=== PATIENT | male | born 1985 | race Caucasian/White ===

== ENCOUNTER 2023-09-19 12:23 | Emergency (ER) | payer OTHER, SELFPAY ==
[2023-09-19 12:30] VITALS: BP 131/82; PULSE 65; RESP 16; TEMP 36.9; O2SAT 98
--- NOTE | 2023-09-19 12:39 | ED.EYEPROB ---
HPI - Eye Problem General Chief complaint: Eye Problems Stated complaint: fb in right eye Time Seen by Provider: 09/19/23 12:39 Source: patient, RN notes reviewed and old records reviewed Mode of arrival: ambulatory Limitations: no limitations History of Present Illness HPI Narrative: 38 year old male with complaints of foreign body sensation to his right eye since yesterday with some swelling of his right upper and lower eyelid, with eye continuously watering. states vision is a little blurry, sclera is red with no photophobia noted.. Patient reports that he got some sawdust in his right eye at work yesterday. Patient reports that he did not attempt to flush his eye admts to rubbing his right eye. Visual acuity right eye 20/30,Left eye 20/25 without corrective lens. chief complaint: eye redness, foreign body (sensation) and other (swelling right upper and lower eyelids) Onset (ago): day(s) ( 2 of symptoms) Onset description: sudden Duration: constant Location: right eye Eye Symptoms: redness and foreign body sensation Place: work Severity scale (1-10): 3 Treatments Prior to Arrival: none Related Data Home Medications Medication Instructions Recorded Confirmed buprenorphine 4 mg-naloxone 1 mg See Rx Instructions .Route .COMPLEX 09/19/23 09/19/23 sublingual film sertraline 50 mg tablet 50 mg PO DAILY 09/19/23 09/19/23 Allergies Allergy/AdvReac Type Severity Reaction Status Date / Time No Known Allergies Allergy Verified 09/19/23 12:38 Review of Systems Review of Systems: CONSTITUTIONAL: Denies fever, chills, or sweats. EYES: Report that vision a little blurry.. Reports redness,, irritation, foreign body sensation to right eye with swelling of upper and lower eyelids. no drainage from eye has increased watering. ENT: Denies rhinorrhea, congestion, sore throat, or otalgia. CARDIOVASCULAR: Denies chest pain, palpitations, or edema. RESPIRATORY: Denies cough or dyspnea. SKIN: Denies rash or itching. 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 There is no relevant family history pertinent to the presenting complaint Exam Narrative: GENERAL: Well-appearing, well-nourished, and in no acute distress. HEAD: Normocephalic, atraumatic. EYES: PERRLA and EOMI. Upper and lower eyelids swollen excessive watering from right eye no mucous drainage has foreign body feeling, sclera red, conjunctiva normal, vision stated a little blurry, no photophobia. see procedure note.visual acuity right eye 2/30 and left 20/25 without correction. ENT: Nares clear, no rhinorrhea or epistaxis. Mucous membranes moist. NECK: Supple. no lymphadenopathy CHEST: Clear to auscultation. No respiratory distress.SAO2 98% on room air HEART: Regular rate and rhythm. No murmur heard. Normal peripheral pulses. SKIN: Warm, dry, no rash. NEURO: No focal deficits. Alert and oriented x3. Course Course Emergency Course: Patient is aware of diagnosis, understands and agrees to treatment plan. Anticipatory guidance given. Patient agrees to follow-up as directed and is aware of reasons to seek care at the emergency department. Portions of this record may have been created with voice r
[2023-09-19] MEDS: DACRIOSE EYE IRRIGATION 118 ML BOTTLE 25 ML RIGHT EYE (12:54)
[2023-09-19] MEDS: FLUORESCEIN SOD 1 MG/STRIP EACH EYE (12:54)
[2023-09-19] MEDS: TETRACAINE HCL 0.5% OPHTH SOLN 4 ML BTL 1 DROP EACH EYE (12:54)
== END 2023-09-19 13:20 | disposition home or self-care (01) ==
PROVIDERS: Emergency Provider Registered Nurse; PCP Nurse Practitioner
DX: T15.81XA Foreign body in other and multiple parts of external eye, right eye, initial encounter (principal); W44.8XXA Other foreign body entering into or through a natural orifice, initial encounter; Y99.0 Civilian activity done for income or pay; F17.210 Nicotine dependence, cigarettes, uncomplicated; F32.A Depression, unspecified
CPT/HCPCS: 65205; 99213; A9270; G0463

== ENCOUNTER 2024-10-26 13:54 | Emergency (ER) | payer OTHER, SELFPAY ==
--- OUTSIDE RECORDS SUMMARY | 2024-10-26 14:01 | XMS_ITS | Clinical Summary ---
Author Organization [facility] Address [address] [place] [address] Care Team Providers Care Lens Examiner Name Role Phone Polo Goff NP Primary Care Provider [phone]- [phone] Allergies Active Allergy Reactions Criticality Noted Date Comments Ketamine Unknown 12/19/2021 Meperidine Hallucinations,Unknown Medium 10/01/2021 Medications naloxone (NARCAN) 4 mg/actuation spray,non-aeroso lIndications:Opi ate-Induced Respiratory Depression Administer 1 spray into affected nostril(s) as needed for opioid reversal Call 911. Administer a single spray in one nostril. Repeat every 3 minutes as needed if no or minimal response. 2 each 1 Active buprenorphine-na loxone (SUBOXONE) 8-[address] 1 Film under the tongue daily 1 Active sertraline (ZOLOFT) 50 mg tablet 2 Active metoclopramide (REGLAN) 10 mg tablet Take 1 tablet up to twice daily as needed for nausea and vomiting. 60 tablet [address] (PROTONIX) 20 mg EC tablet Take 1 tablet (20 mg total) by mouth daily 90 tablet 1 2 Active buprenorphine-na loxone (SUBOXONE) 4-[address] 1 Film under the tongue daily 3 Film 5 Active Active Problems Problem Noted Date Diagnosed Date Elevated glucose 01/17/2022 Gastroparesis 01/17/2022 Chronic nausea 12/19/2021 Gastroesophageal reflux disease 12/19/2021 Coffee ground emesis 12/19/2021 Epigastric pain 12/19/2021 S/P cholecystectomy 12/19/2021 Abdominal pain, epigastric 12/13/2020 Opioid withdrawal 10/18/2020 Encounters Date Type Department Care Team Description 10/18/2024 [facility] Enrollment [facility] Warm Hand Off Program [address] [place], [place] [phone] Razia Salgado 10/17/2024 8:44 AM CDT - 10/17/2024 10:21 AM CDT Emergency [facility] Emergency Department [address] [place] [address] Medication refill (Primary Dx) Discharge Disposition: Discharge to home or self care from Last 3 Months Immunizations Immunization Administration Dates Next Due Tdap 10/03/2019 Surgical History Surgery Date Site/Laterality Comments CHOLECYSTECTOMY Medical History Medical History Date Comments Depression Social History Tobacco Use Types Packs/Day Years Used Date Smoking Tobacco: Every Day Cigarettes Smokeless Tobacco: Never Tobacco Cessation:Ready to Q uit: Not Asked; Counseling Given: Not Answered Alcohol Use Standard Drinks/Week Comments Not Currently 0 (1 standard drink = 0.6 oz pur e alcohol) AUDIT-C Answer Date Recorded Frequency of Alcohol Consumption Not on file 01/17/2022 Q2: How many drinks containi ng alcohol do you have on a typical day when you are drinking? Patient does not drink Frequency of Binge Drinking Not on file 12/30 Personal Safety Answer Date Recorded Have you ever been in or are you currently in a harmful physical or emotional relationship or is someone making you feel afraid or unsafe? 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 Gender Identity Not on file Sexual Orientation Not on file Obstetrics History Last Filed Vital Signs Vital Sign Reading Time Taken Comments Blood Pressure 132/70 10/17/2024 8:43 AM CDT Pulse 96 10/17/2024 8:42 AM CDT Temperature 36.8 C (98.3 F) 10/17/2024 8:42 AM CDT Respiratory Rate 16 10/17/2024 8:43 AM CDT Oxygen Saturation 100% 10/17/2024 8:42 AM CDT Inhaled Oxygen Concentration - - Weight 99.8 kg (220 lb) 10/17/2024 8:42 AM CDT Height 185.4 cm (6' 1) 10/17/2024 8:42 AM CDT Body Mass Index 29.03 10/17/2024 8:42 AM CDT Plan of Treatment Health Maintenance Due Date Last Done Comments Depression Screening 1987 Hepatitis C Screening 1987 Varicella Vaccines (1 of 2 - 13+ 2-dose series) 2000 Hepatitis B Screening 2005 Regular Well Visit/Exam 18-64 2005 Pneumococcal vaccine <65 (1 of 2 - PCV) 2006 HPV Vaccines (1 - 3-dose SCDM series) 2014 Influenza Vaccine (#1) 2024 DTaP/Tdap/Td Vaccine (2 - Td or Tdap) 10/02/202907/2019 Procedures Procedure Name Priority Date/Time Associated Diagnosis Comments DRUGS OF ABUSE SCREEN, URINE WITHOUT CONFIRMATION STAT 10/17/2024 9:00 AM CDT from Last 3 Months Results * (ABNORMAL) Drugs of Abuse Screen, Urine without Confirmation (10/17/2024 9:00 AM CDT) Amphetamine, ur Not Detected CutOff 500ng/mL [facility] ([place]) Comment: Interpretive Data - Amphetamines: Samples containing greater than 500 ng/mL d-methamphetamine or other cross-reacting amphetamine compounds are reported as positive. Amphetamine immunoassays are subject to significant false positive rates due to cross-reactivity of non-amphetamine drugs. Confirmatory testing required for definitive results. Current Interpretive Data was last reviewed 2022. Barbiturates, ur Not Detected CutOff 200ng/mL [facility] ([place]) Comment: Interpretive Data - Barbiturates: Samples containing greater than 200 ng/mL secobarbital or other cross-reacting barbiturate compounds are reported as positive. False positive and false negative results are possible. Confirmatory testing required for definitive results. Current Interpretive Data was last reviewed 2022. Benzodiazepines, ur Not Detected CutOff 100ng/mL [facility] ([place]) Comment: Interpretive Data - Benzodiazepines: Samples containing greater than 100 ng/mL nordiazepam or other cross-reacting compounds are reported as positive. False positive and false negative results are possible. Confirmatory testing required for definitive results. Current Interpretive Data was last reviewed 2022. Cannabinoids, ur Screen Positive, presumptive (A) CutOff 50 ng/mL [facility] ([place]) Comment: Interpretive Data - Cannabinoids: Samples containing greater than 50 ng/mL delta-9 THC -COOH or other cross- reacting compounds are reported as positive. False positive and false negative results are possible. Confirmatory testing required for definitive results. Current Interpretive Data was last reviewed 2022. Cocaine, ur Not Detected CutOff 150ng/mL [facility] ([place]) Comment: Interpretive Data - Cocaine: Samples containing greater than 150 ng/mL benzoylecgonine or other cross- reacting compounds are reported as positive. False positive and false negative results are possible. Confirmatory testing required for definitive results. Current Interpretive Data was last reviewed 2022. Fentanyl, Ur Not Detected CutOff 5 ng/mL [facility] ([place]) Comment: Interpretive Data - Fentanyl: Samples containing greater than 5 ng/mL norfentanyl, fentanyl, or other cross-reacting fentanyl compounds are reported as positive. False positive and false negative results are possible. Confirmatory testing required for definitive results. Current Interpretive Data was last reviewed 2023. Methadone, ur Not Detected CutOff 300ng/mL [facility] ([place]) Comment: Interpretive Data - Methadone: Samples containing greater than 300 ng/mL d,l-methadone or other cross-reacting compounds are reported as positive. False positive and false negative results are possible. Confirmatory testing required for definitive results. Current Interpretive Data was last reviewed 2022. Opiates, ur Not Detected CutOff 300ng/mL [facility] ([place]) Comment: Interpretive Data - Opiates: Samples containing greater than 300 ng/mL morphine or other cross-reacting compounds are reported as positive. False positive and false negative results are possible. Confirmatory testing required for definitive results. Current Interpretive Data was last reviewed 2022. Oxycodone, ur Not Detected CutOff 100ng/mL [facility] ([place]) Comment: Interpretive Data - Oxycodone: Samples containing greater than 100 ng/mL oxycodone or other cross-reacting compounds are reported as positive. False positive and false negative results are possible. Confirmatory testing required for definitive results. Current Interpretive Data was last reviewed 2022. Phencyclidine, ur Not Detected CutOff 25 ng/mL [facility] ([place]) Comment: Interpretive Data - Phencyclidine: Samples containing greater than 25 ng/mL phencyclidine or other cross-reacting compounds are reported as positive. False positive and false negative results are possible. Confirmatory testing required for definitive results. Current Interpretive Data was last reviewed 2022. Urine Creatinine 145 mg/dL [facility] ([place]) Comment: Interpretive Data Urine Creatinine: < 10 mg/dL is extremely dilute = or > 10 but < 20 mg/dL is dilute = or > 20 mg/dL is normal Current Interpretive Data was last revised on 2017. Urine 10/17/2024 9:00 AM CDT 10/17/2024 9:03 AM CDT Narrative [facility] ([place]) - 10/17/2024 9:28 AM CDT Drug of Abuse screening is performed by immunoassay for medical purposes only. This is not to be used for Pain Management purposes. [facility] URINE ORDERABLES Oksana christine Result [facility] ([place]) 1 [facility] Department [place] [address] from Last [address] [place] [address] [address] [place] [address] [facility] Advance Directives For more information, please contact: [phone] * Full Code (Latest Code Status on File) Date Activated Date Inactivated Comments 01/07/2022 11:15 AM 01/07/2022 6:04 PM * Full Code Date Activated Date Inactivated Comments 01/07/2022 11:15 AM 01/07/2022 11:15 AM * Full Code Date Activated Date Inactivated Comments 12/13/2020 7:41 AM 12/14/2020 6:35 PM Care Teams Lens Examiner Relationship Specialty Start Date End Date Polo Goff NP [address] [place] [address] PCP - General 08/17/21
--- OUTSIDE RECORDS SUMMARY | 2024-10-26 14:01 | XMS_ITS | Clinical Summary ---
Author Organization [facility] Address [address] [place] [address] Phone Care Team Providers Care Waiter And Cashier Name Role Phone Polo Goff APRN, [place] Primary Care Provid er Allergies Active Allergy Reactions Criticality Noted Date Comments Meperidine Unknown 10/01/2021 Medications Buprenorphine HCl-Naloxone HCl (SUBOXONE SL) by Sublingual route. Active Sertraline HCl (ZOLOFT PO) Take by mouth. Act valente omeprazole (PriLOSEC) 20 MG CAPSULE DELAYED RELEASE 2 Active ondansetron (ZOFRAN) 4 MG Tablet Take 1-2 Tablets by mouth every 8 hours as needed for Nausea - 1st line. 20 Tablet 2 Active ondansetron (ZOFRAN) 4 MG Tablet Take 1-2 Tablets by mouth every 8 hours as needed for Nausea - 1st line. 20 Tablet 3 Active Social History Tobacco Use Types Packs/Day Years Used Date Smoking Tobacco: Every Day Smokeless Tobacco: Never Alcohol Use Standard Drinks/Week Comments Not Currently 0 (1 standard drink = 0.6 oz pur e alcohol) Sex and Gender Information Value Date Recorded Sex Assigned at Not on file Legal Sex Male 9:16 PM CDT Gender Identity Not on file Sexual Orientation Not on file Last Filed Vital Signs Vital Sign Reading Time Taken Comments Blood Pressure 146/87 04/16/2022 9:15 AM ASSOCIATE PROFESSOR OF ART Pulse 65 04/16/2022 9:15 AM ASSOCIATE PROFESSOR OF ART Temperature 36.4 C (97.5 F) 04/16/2022 8:10 AM ASSOCIATE PROFESSOR OF ART Respiratory Rate 22 04/16/2022 8:12 AM ASSOCIATE PROFESSOR OF ART Oxygen Saturation 96% 04/16/2022 9:15 AM ASSOCIATE PROFESSOR OF ART Inhaled Oxygen Concentration - - Weight 111.1 kg (245 lb) 04/16/2022 8:10 AM ASSOCIATE PROFESSOR OF ART Height 185.4 cm (6' 1) 04/16/2022 8:10 AM ASSOCIATE PROFESSOR OF ART Body Mass Index 32.32 04/16/2022 8:10 AM ASSOCIATE PROFESSOR OF ART Plan of Treatment Not on file Insurance MEDICAID [facility] Care Teams Waiter And Cashier Relationship Specialty Start Date End Date Polo Goff, ECONOMICS TEACHER, SEATING UPHOLSTERER PCP - General Advanced Practice Nurse 10/01/21
--- OUTSIDE RECORDS SUMMARY | 2024-10-26 14:01 | XMS_ITS | Referral Summary ---
Author Organization [facility] Address [address] [place] [address] Care Team Providers Care Cath Lab Tech Name Role Phone Polo Goff NP Primary Care Provider [phone] Encounters Date Type Department Care Team Description 10/18/2024 [facility] Enrollment [facility] Warm Hand Off Program [address] [place], [place] [phone] Razia Salgado 10/17/2024 8:44 AM CDT - 10/17/2024 10:21 AM CDT Emergency [facility] Emergency Department [address] [place] [address] Medication refill (Primary Dx) Discharge Disposition: Discharge to home or self care from Last 3 Months Allergies Active Allergy Reactions Criticality Noted Date [...] Abdominal pain, epigastric 12/13/2020 Opioid withdrawal 10/18/2020 Immunizations Immunization Administration Dates Next Due Tdap 10/03/2019 Social History Tobacco Use Types Packs/Day Years [...] on file 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 Gender Identity Not on file Sexual Orientation [...] 10/17/2024 8:42 AM CDT Plan of Treatment Not on file Procedures Procedure Name Priority Date/Time Associated Diagnosis Comments DRUGS OF ABUSE SCREEN, URINE WITHOUT CONFIRMATION STAT 10/17/2024 9:00 AM CDT from Last 3 Months Results * (ABNORMAL) Drugs of Abuse Screen, Urine without Confirmation (10/17/2024 9:00 AM CDT) Pathologist [facility] Amphetamine, ur Not Detected CutOff 500ng/mL [facility] ([place]) Comment: Interpretive Data - Amphetamines: [...] ur Not Detected CutOff 300ng/mL [facility] ([place]) Comment: Interpretive Data - Opiates: Samples containing [...] Phencyclidine, ur Not Detected CutOff 25 ng/mL [facility] ([place]) Comment: Interpretive Data - Phencyclidine: Samples containing greater than 25 ng/mL phencyclidine or other cross-reacting compounds are reported as positive. False positive and false negative results are possible. Confirmatory testing required for definitive results. Current Interpretive Data was last reviewed 2022. Urine Creatinine 145 mg/dL [facility] ([place]) Comment: Interpretive Data Urine Creatinine: < [...] christine Result [facility] ([place]) 1 [facility] Department [place] [address] from Last 3 Months Insurance Advance Directives For more information, please contact: [phone] * Full Code (Latest Code Status on File) Date Activated Date Inactivated Comments 01/07/2022 11:15 AM 01/07/2022 6:04 PM * Full Code Date Activated Date Inactivated Comments 01/07/2022 11:15 AM 01/07/2022 11:15 AM * Full Code Date Activated Date Inactivated Comments 12/13/2020 7:41 AM 12/14/2020 6:35 PM Care Teams Cath Lab Tech Relationship Specialty Start Date End Date Polo Goff NP [address] [place] [id number] PCP - General 08/17/21
--- OUTSIDE RECORDS SUMMARY | 2024-10-26 14:01 | XMS_ITS | Encounter Summary ---
Author Organization [facility] Address [address] [place] [address] Care Team Providers Care Automotive Airconditioning Mechanic Name Role Phone Nu Gonzalez CARE SUPPORT REPRESENTATIVE Primary Care Provider [phone] Miscellaneous, Not In File Primary Care Provider Unavailable Polo Goff NP Primary Care Provider +1- [phone] Encounter Details Date Type Department Care Team (Late st Contact Info) Description 12/27/2020 [facility] Warm Hand Off Program [address] [place] [address] Karie William Social History Tobacco Use Types Packs/Day Years Used Date Smoking Tobacco: Every Day Cigarettes Alcohol Use Standard Drinks/Week Comments Not Currently 0 (1 standard drink = 0.6 oz pur e alcohol) Sex and Gender Information Value Date Recorded Sex Assigned at Not on file 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
--- OUTSIDE RECORDS SUMMARY | 2024-10-26 14:01 | XMS_ITS | Patient Health Record ---
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 Role Phone Polo Goff Primary Care Provider Lauryn Hatfield Unavailable [phone] Csaey Layton Unavailable [phone] Isabel Rincon Unavailable [phone] Dafne Rudolph Unavailable [phone] Stacey Reis Unavailable Lubna Gonzalez Unavailable [phone] Allergies Allergen (clinical drug ingredient) Drug/Non Drug Allergy documented on EMR Reaction Allergy Type Onset Date Status meperidine Demerol Unknown Drug Allergy Active Results Component Value Reference Range Notes 14 Panel Urine Drug Screen Reviewed date:10/20/2024 02:42:19 PM Interpretation: Performing Lab: Notes/Report: THC POS JANEEN neg MOP (OPI) neg AMP neg MET neg BAR neg BZO neg MDMA neg MTD neg OXY neg PCP neg BUP POS TCA neg FTY neg 12 Panel Urine Drug Screen Reviewed date:12/09/2023 12:11:17 PM Interpretation: Performing Lab: Notes/Report: THC POS JANEEN neg MOP (OPI) neg AMP neg MET neg BAR neg BZO neg MDMA neg MTD neg OXY neg PCP neg BUP POS 12 Panel Urine Drug Screen Reviewed date:11/04/2023 02:07:36 PM Interpretation: Performing Lab: Notes/Report: THC POS JANEEN neg MOP (OPI) neg AMP neg MET neg BAR neg BZO neg MDMA neg MTD neg OXY neg PCP neg BUP POS Buprenorphine and Metabolite (Urine test) Reviewed date:02/17/2024 09:29:28 AM Interpretation: Performing Lab:[facility], [address], [place], Phone - [phone], Director - PhDAbudu Notes/Report: Clinical Information:[id number] LM Buprenorphine Positive Confirmation p erformed by Mass Spectrometry Buprenorphine Positive Buprenorphine Conf, MS, UR 38 Cutoff=10 ng/m L Norbuprenorphine Positive Norbuprenorphine Conf, MS, UR 259 Cutoff=10 n g/mL 12 Panel Urine Drug Screen Reviewed date:02/05/2024 02:32:33 PM Interpretation: Performing Lab: Notes/Report: THC POS JANEEN neg MOP (OPI) neg AMP neg MET neg BAR neg BZO neg MDMA neg MTD neg OXY neg PCP neg BUP POS 12 Panel Urine Drug Screen Reviewed date:05/04/2024 03:55:16 PM Interpretation: Performing Lab: Notes/Report: THC POS JANEEN neg MOP (OPI) neg AMP neg MET neg BAR neg BZO neg MDMA neg MTD neg OXY neg PCP neg BUP POS 12 Panel Urine Drug Screen Reviewed date:06/03/2024 04:07:01 PM Interpretation: Performing Lab: Notes/Report: THC POS JANEEN neg MOP (OPI) neg AMP neg MET neg BAR neg BZO neg MDMA neg MTD neg OXY neg PCP neg BUP POS 12 Panel Urine Drug Screen Reviewed date:07/06/2024 04:15:13 PM Interpretation: Performing Lab: Notes/Report: THC POS JANEEN neg MOP (OPI) neg AMP neg MET neg BAR neg BZO neg MDMA neg MTD neg OXY neg PCP neg BUP POS 12 Panel Urine Drug Screen Reviewed date:08/10/2024 04:22:26 PM Interpretation: Performing Lab: Notes/Report: THC POS JANEEN neg MOP (OPI) neg AMP neg MET neg BAR neg BZO neg MDMA neg MTD neg OXY neg PCP neg BUP POS 14 Panel Urine Drug Screen Reviewed date:09/09/2024 04:09:41 PM Interpretation: Performing Lab: Notes/Report: THC POS JANEEN neg MOP (OPI) neg AMP neg MET neg BAR neg BZO neg MDMA neg MTD neg OXY neg PCP neg BUP POS TCA neg FTY neg 12 Panel Urine Drug Screen Reviewed date:01/06/2024 02:15:13 PM Interpretation: Performing Lab: Notes/Report: THC POS JANEEN neg MOP (OPI) neg AMP neg MET neg BAR neg BZO neg MDMA neg MTD neg OXY neg PCP neg BUP POS 12 Panel Urine Drug Screen Reviewed date:03/05/2024 02:00:41 PM Interpretation: Performing Lab: Notes/Report: THC POS JANEEN neg MOP (OPI) neg AMP neg MET neg BAR neg BZO neg MDMA neg MTD neg OXY neg PCP neg BUP POS Reason For Referral No Information Medications Medication SIG (Take, Route, Frequency, Duration) Notes Start Date End Date Status Sertraline HCl 50 MG TAKE 1 TABLET BY [facility] EVERY DAY; Duration: 90 Active Buprenorphine HCl-Naloxone HCl 4-1 MG 1 film under the tongue and allow to dissolve Sublingual Once a day; Duration: 30 days 10/20/2024 Active Omeprazole 40 MG 1 capsule 30 minutes before morning meal Orally Once a day; Duration: 30 day(s) 11/09/2021 Active Social History Tobacco Use: Social History Observation Description Date Details (start date - stop date) Never Smoker NA - NA Sex Assigned At : Social History Observation Description Sex Assigned At Male Dont use, Tobacco Use/Smoking Question Answer Notes Are you a current every day smoker Additional Findings: Tobacco User Heavy cigarett e smoker (20-39 cigs/day) PRAPARE Question Answer Notes Date Completed/Updated: 11/04/2023 What is your current housing situation? I have h ousing Are you worried about losing your housing? No What is the highest level of school that you have finished? 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 Check all that apply I do not have problems meeting my needs Has lack of transportation k ept you from medical appointments, meetings, work or from getting things needed for daily living? No How often do you see or talk to people that you care about and feel close to? (For example: talking to friends on the phone, visiting friends or family, going to anglican or club meetings) More than 5 times a week How stressed are you? Stress is when someone feels tense, nervous, anxious, or can\t sleep at night because their mind is troubled Quite a bit In the past year have you sp ent more than 2 nights in a row in a senior living, senior care, care home center, or juvenile correctional facility? No Are you a refugee? No What country are you from? [place] Do you feel physically and e motionally safe where you currently live? Yes In the past year, have you b een afraid of your partner or ex-partner? No PRAPARE Score: 4 Tobacco Control (Standard) Question Answer Notes Tobacco use: Nonsmoker Problems Problem Type SNOMED Code ICD Code Onset Dates Problem Status W/U Status Risk Notes Problem Tobacco user (775239144) Nicotine dependence, unspecified, uncomplicated (F17.200) Active confirmed Problem Psychoactive substance dependence (8214086) Chemical dependency (F19.20) Active confirmed Problem Overweight (763370862) Over weight (E66.3) Active confirmed Problem Overweight (609132004) Overweight (BMI 25.0-29.9) (E66.3) Active confirmed Problem Obesity (450469081) Obesity (BMI 30-39.9) (E66.9) Active confirmed Problem Tobacco use (156766028) Tobacco use disorder (F17.200) Active confirmed Problem Mild major depression, single episode (32044269) Current mild episode of major depressive disorder without prior episode (F32.0) 2 Active confirmed Problem Opioid use disorder (7901168617) Opioid use disorder (F11.99) Active confirmed Vital Signs Heart Rate 81 /min 10/20/2024 Temperature 98.3 degrees Fahrenheit 02/05/2024 Respiratory Rate 16 /min 10/20/2024 Oximetry 97 % 10/20/2024 Blood pressure diastolic 82 mm Hg 10/20/2024 Height 73 in 10/20/2024 Blood pressure systolic 130 mm Hg 10/20/2024 Weight 210 lb 4 oz lbs 10/20/2024 BMI 27.74 kg/m2 10/20/2024 Encounters Encounter Location Date Provider Diagnosis [address] [facility] [place] [address] 11/04/2023 Lubna Gonzalez Opioid use disorder F11.99 ; Exposure to potential infection Z20.9 ; Overweight (BMI 25.0-29.9) E66.3 ; Nicotine dependence, unspecified, uncomplicated F17.200 and Dietary counseling Z71.[address] [place] [address] 11/04/2023 Isabel Rincon [address] [address] 12/09/2023 Casey Layton Opioid use disorder F11.[address] [address] 01/06/2024 Lubna Szlufik Opioid use disorder F11.99 ; Nicotine dependence, unspecified, uncomplicated F17.200 ; Overweight (BMI 25.0-29.9) E66.3 and Nutritional counseling Z71.[address] [address] 02/05/2024 Polo Goff Opioid use disorder F11.99 ; Overweight E66.3 ; Nutritional counseling Z71.3 and Nicotine dependence, unspecified, uncomplicated F17.[address] [address] 03/05/2024 Polo Goff Opioid use disorder F11.99 ; Overweight E66.3 ; Nutritional counseling Z71.3 and Nicotine dependence, unspecified, uncomplicated F17.[address] [address] 05/04/2024 Lubna Szlufik Opioid use disorder F11.99 ; Nutritional counseling Z71.3 and Exposure to potential infection Z20.[address] [address] 06/03/2024 Polo Goff Opioid use disorder F11.99 ; Overweight E66.3 ; Nutritional counseling Z71.3 and Nicotine dependence, unspecified, uncomplicated F17.[address] [address] 07/06/2024 Lubna Szlufik Opioid use disorder F11.[address] [address] 08/10/2024 Lubna Szlufik Opioid use disorder F11.99 and Over weight E66.[address] [address] 09/09/2024 Lubna Szlufik Opioid use disorder F11.99 and Over weight E66.[address] [place] [address] 10/20/2024 Lubna Szlufik Opioid use disorder F11.99 and Over weight E66.[address] [place] [address] 11/04/2023 Lubna Szlufik Opioid use disorder F11.[address] [place] [address] 11/27/2023 Lubna Szlufik Opioid use disorder F11.[address] [place] [address] 01/06/2024 Polo Denver Opioid use disorder F11.[address] [place] [address] 04/02/2024 Polo Goff Opioid use disorder F11.[address] [address] 07/02/2024 Lauryn Hatfield Opioid use disorder F11.[address] [place] [address] 08/05/2024 Stacey Reis Opioid use disorder F11.99 [address] [address] [place] [address] 10/08/2024 Dafne Rudolph Opioid use disorder F11.99 [address] [address] [facility] [address] 10/15/2024 Dafne Rudolph [address] [address] [address] [facility] [place] [address] 10/18/2024 Dafne Rudolph Assessments Encounter Date Diagnosis (ICD Code) Assessment Notes Treatment Notes Treatment Clinical Notes Section Notes 11/04/2023 Opioid use disorder (ICD-10 - F11.99) 11/04/2023 Exposure to potential infection (ICD-10 - Z20.9) 11/04/2023 Opioid use disorder (ICD-10 - F11.99) 11/27/2023 Opioid use disorder (ICD-10 - F11.99) 12/09/2023 Opioid use disorder (ICD-10 - F11.99) GET LABS NEXT MONTH (THEY WERE NOT DONE IN OCTOBER ORDERED) HE AGREES TO DO THAT 01/06/2024 Nicotine dependence, unspecified, uncomplicated (ICD-10 - F17.200) 01/06/2024 Opioid use disorder (ICD-10 - F11.99) 01/06/2024 Opioid use disorder (ICD-10 - F11.99) 02/05/2024 Overweight (ICD-10 - E66.3) 02/05/2024 Opioid use disorder (ICD-10 - F11.99) 03/05/2024 Overweight (ICD-10 - E66.3) 03/05/2024 Opioid use disorder (ICD-10 - F11.99) 04/02/2024 Opioid use disorder (ICD-10 - F11.99) 05/04/2024 Nutritional counseling (ICD-10 - Z71.3) 05/04/2024 Opioid use disorder (ICD-10 - F11.99) 06/03/2024 Opioid use disorder (ICD-10 - F11.99) 07/02/2024 Opioid use disorder (ICD-10 - F11.99) 07/06/2024 Opioid use disorder (ICD-10 - F11.99) 08/05/2024 Opioid use disorder (ICD-10 - F11.99) 08/10/2024 Opioid use disorder (ICD-10 - F11.99) 09/09/2024 Over weight (ICD-10 - E66.3) 09/09/2024 Opioid use disorder (ICD-10 - F11.99) 10/08/2024 Opioid use disorder (ICD-10 - F11.99) 10/20/2024 Over weight (ICD-10 - E66.3) 10/20/2024 Opioid use disorder (ICD-10 - F11.99) 06/03/2024 Overweight (ICD-10 - E66.3) 06/03/2024 Nutritional counseling (ICD-10 - Z71.3) 08/10/2024 Over weight (ICD-10 - E66.3) 05/04/2024 Exposure to potential infection (ICD-10 - Z20.9) 02/05/2024 Nutritional counseling (ICD-10 - Z71.3) 03/05/2024 Nutritional counseling (ICD-10 - Z71.3) 01/06/2024 Overweight (BMI 25.0-29.9) (ICD-10 - E66.3) 11/04/2023 Overweight (BMI 25.0-29.9) (ICD-10 - E66.3) 11/04/2023 Nicotine dependence, unspecified, uncomplicated (ICD-10 - F17.200) 01/06/2024 Nutritional counseling (ICD-10 - Z71.3) 02/05/2024 Nicotine dependence, unspecified, uncomplicated (ICD-10 - F17.200) 03/05/2024 Nicotine dependence, unspecified, uncomplicated (ICD-10 - F17.200) 06/03/2024 Nicotine dependence, unspecified, uncomplicated (ICD-10 - F17.200) 11/04/2023 Dietary counseling (ICD-10 - Z71.3) 11/04/2023 Other Provided case management services to address social determinants of health needs and reduce barriers to health care services. 01/06/2024 Other Client agrees to take medication as prescribed. Discussed medication side effects, adverse effects, risks, benefits, as well as interactions. Encouraged non-use of opioids and other illicit substances. Has naloxone. Understand that discontinuing buprenorphine increases the risk of overdose upon return to illicit opioid use. Use of alcohol or benzodiazepines with buprenorphine increases the risk of overdose and . Education provided about safe storage of medications. Encourage participation in recovery groups/counseling services. Contact office with questions or concerns. 02/05/2024 Other Potential side effects of buprenorphine discussed, as well as taking buprenorphine as prescribed. Dangers of using other controlled substances (prescribed or illegal/including benzodiazepines) with buprenorphine discussed. Patient understands taking other narcotics with buprenorphine could lead to respiratory distress and even . Patient understands that ALL treating providers/physicia ns should be informed of buprenorphine use as part of a Medication Assisted Treatment program 03/05/2024 Other Potential side effects of buprenorphine discussed, as well as taking buprenorphine as prescribed. Dangers of using other controlled substances (prescribed or illegal/including benzodiazepines) with buprenorphine discussed. Patient understands taking other narcotics with buprenorphine could lead to respiratory distress and even . Patient understands that ALL treating providers/physicia ns should be informed of buprenorphine use as part of a Medication Assisted Treatment program 05/04/2024 Other Patient agrees to take medication as prescribed. Discussed medication side effects, adverse effects, risks, benefits, as well as interactions. Encouraged non-use of opioids and other illicit substances. Has naloxone. Discontinuing buprenorphine increases the risk of overdose upon return to illicit opioid use. Use of alcohol or benzodiazepines with buprenorphine increases the risk of overdose and . Education provided about safe storage of medications. Encouraged participation in recovery groups/counseling services. Contact office with questions or concerns. 06/03/2024 Other Potential side effects of buprenorphine discussed, as well as taking buprenorphine as prescribed. Dangers of using other controlled substances (prescribed or illegal/including benzodiazepines) with buprenorphine discussed. Patient understands taking other narcotics with buprenorphine could lead to respiratory distress and even . Patient understands that ALL treating providers/physicia ns should be informed of buprenorphine use as part of a Medication Assisted Treatment program Patient may self-administe r their own medications or may self-administe r their own oral medications per [place] Protocol. 07/06/2024 Other Patient agrees to take medication as prescribed. Discussed medication side effects, adverse effects, risks, benefits, as well as interactions. Encouraged non-use of opioids and other illicit substances. Has naloxone. Discontinuing buprenorphine increases the risk of overdose upon return to illicit opioid use. Use of alcohol or benzodiazepines with buprenorphine increases the risk of overdose and . Education provided about safe storage of medications. Encouraged participation in recovery groups/counseling services. Contact office with questions or concerns. Patient may self-administe r their own medications or may self-administe r their own oral medications per [place] Protocol. 08/10/2024 Other Patient agrees to take medication as prescribed. Discussed medication side effects, adverse effects, risks, benefits, as well as interactions. Encouraged non-use of opioids and other illicit substances. Has naloxone. Discontinuing buprenorphine increases the risk of overdose upon return to illicit opioid use. Use of alcohol or benzodiazepines with buprenorphine increases the risk of overdose and . Education provided about safe storage of medications. Encouraged participation in recovery groups/counseling services. Contact office with questions or concerns. Patient may self-administe r their own medications or may self-administe r their own oral medications per [place] Protocol. 09/09/2024 Other Patient agrees to take medication as prescribed. Discussed medication side effects, adverse effects, risks, benefits, as well as interactions. Encouraged non-use of opioids and other illicit substances. Has naloxone. Discontinuing buprenorphine increases the risk of overdose upon return to illicit opioid use. Use of alcohol or benzodiazepines with buprenorphine increases the risk of overdose and . Education provided about safe storage of medications. Encouraged participation in recovery groups/counseling services. Contact office with questions or concerns. Patient may self-administe r their own medications or may self-administe r their own oral medications per [place] Protocol. 10/20/2024 Other Patient agrees to take medication as prescribed. Discussed medication side effects, adverse effects, risks, benefits, as well as interactions. Encouraged non-use of opioids and other illicit substances. Has naloxone. Discontinuing buprenorphine increases the risk of overdose upon return to illicit opioid use. Use of alcohol or benzodiazepines with buprenorphine increases the risk of overdose and . Education provided about safe storage of medications. Encouraged participation in recovery groups/counseling services. Contact office with questions or concerns. Patient may self-administe r their own medications or may self-administe r their own oral medications per [place] Protocol. Plan Of Treatment No Information Insurance Providers Payer Name Payer Address Payer Phone Subscriber Number Group Number Insured Name Patient Relationship to Insured Coverage Start Date Coverage End Date [employer] [facility] Att Claims Department [address] [place] [address] [phone] [id number] Mehran Jesus Self - patient is the insured 1 [facility] [address] [place] [address] [phone] [id number] Mehran Jesus Self - patient is the insured 2 Medical (General) History Medical History History ICD Code OUD MDD Surgical History Surgery Date(Month/Year) cholecystectomy Hospitalization History Reason Date(Month/Year)
[2024-10-26 14:07] VITALS: BP 137/73; PULSE 63; RESP 18; TEMP 36.6; O2SAT 99
--- NOTE | 2024-10-26 14:28 | ED.SKABFB ---
HPI - Skin/Abscess/Foreign Bdy General Chief complaint: Skin/Abscess/Foreign Body Stated complaint: right arm/wasp sting swelling Time Seen by Provider: 10/26/24 14:28 Source: patient, RN notes reviewed and old records reviewed Mode of arrival: ambulatory Limitations: no limitations History of Present Illness HPI narrative: 39-year-old male presents to the [facility] with with concerns of swelling after being stung by either of wasps or be yesterday morning. No treatment prior to arrival Treatments prior to arrival: none Related Data Home Medications ?Medication ?Instructions ?Recorded ?Confirmed ?Last Taken ?Type buprenorphine 4 mg-naloxone 1 mg See Rx Instructions .Route .COMPLEX 09/19/23 09/19/23 Unknown History sublingual film sertraline 50 mg tablet 50 mg PO DAILY 09/19/23 09/19/23 Unknown History Allergies Allergy/AdvReac Type Severity Reaction Status Date / Time meperidine (From Demerol) Allergy Intermediate Hallucinati Verified 10/26/24 14:30 ng Review of Systems Review of Systems: All systems reviewed & are unremarkable except as noted in HPI and below Constitutional: Constitutional: Reports no additional constitutional complaints ENT: Reports system reviewed and no additional complaints, except as documented Cardiovascular: Cardiovascular: Reports no additional cardiovascular complaints, Denies chest pain and Denies dyspnea Respiratory: Respiratory: Reports no additional respiratory complaints, Denies chest congestion, Denies cough and Denies dyspnea Musculoskeletal: Musculoskeletal: Reports no additional musculoskeletal complaints Integumentary/Breasts: Skin/Breast: Reports as per HPI [facility] Past Medical History Medical History (Updated 10/26/24 @ 14:33 by Mariza Boyer APRN) Depression Surgical History Surgical History (Updated 09/20/23 @ 17:30 by Nadia Ibarra NP) Hx of cholecystectomy Social History Social History (Updated 09/20/23 @ 17:31 by Nadia Ibarra NP) Smoking packs per day: 1 Smoking cigarettes per day: 20.0 Smoking status: Current every day smoker Tobacco type: cigarettes Alcohol intake: former Substance use: former Last use: 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 There is no relevant family history pertinent to the patient complaint. Exam Const: General: cooperative, healthy appearing, comfortable, no acute distress, well developed, alert and well nourished Nutritional Appearance: well nourished Orientation/consciousness: patient oriented x3 Limitations: no limitations HENMT: Head: normal to inspection Mouth: Yes Normal oral and palatal mucosa present, Yes lip normal, Yes tongue normal and Yes moist mucous membranes Eyes: General: appearance normal, both eyes and all related structures Alignment and Position: alignment normal Neck: Neck: normal visual inspection, full ROM, no lymphadenopathy and no meningeal signs Chest: Chest palpation & inspection: normal inspection of the chest Resp: Effort & Inspection: normal respiratory effort and able to speak in complete sentences Auscultation: clear to auscultation bilaterally, no crackles, no rales, no rhonchi and no wheezes Cardio: Rate: regular rate Skin: General skin exam: normal color and no rashes or lesions noted Other: Mild swelling to the right forearm, small mid forearm posterior area where he was stung. No stinger was noted. No redness. Tender to palpation. Neuro: General: patient oriented x3, gait normal, moves all extremities and no meningeal signs Cognition (Neuro): normal cognition Speech: normal speech Gait exam (Neuro): Normal gait present Extrem: General: normal to inspection, full ROM, capillary refill normal and normal gait Psych: Appearance: grossly normal and well kempt Mental Status: mental status grossly normal Speech and movement: Normal speech and movement present and Clear speech present Affect: normal affect Attitude: cooperative Course Course Level of Care: Express Care Visit Vital Signs Vital signs: Vital Signs Temperature 97.8 F 10/26/24 14:07 Pulse Rate 63 10/26/24 14:07 Respiratory Rate 18 10/26/24 14:07 Blood Pressure 137/73 10/26/24 14:07 Pulse Oximetry 99 10/26/24 14:07 Oxygen Delivery Room Air 10/26/24 14:07 Temperature 97.8 F 10/26/24 14:07 Pulse Rate 63 10/26/24 14:07 Respiratory Rate 18 10/26/24 14:07 Blood Pressure 137/73 10/26/24 14:07 Pulse Oximetry 99 10/26/24 14:07 Oxygen Delivery Room Air 10/26/24 14:07 Reviewed MDM - Skin/Abscess/Foreign Bdy MDM Narrative Medical decision making narrative: Patient sitting in exam room. Patient is nontoxic, vitals stable. Patient presents with swelling of the forearm after being stung yesterday. No treatment prior to arrival Patient appropriate for outpatient treatment with [id number] products and steroid. Discharge instructions reviewed with patient, as well as provided in writing per nursing staff. The instructions also include specific and strict return/GO TO THE ER as well as f/u information. All questions have been answered, and the patient deny any further questions with discharge and discharge plan. Some parts of this dictation were generated by voice recognition software and may contain typographical and/or grammatical inaccuracies. Differential Diagnosis Differential diagnosis: Likely abscess of skin or subcutaneous tissue, urticaria, cellulitis, eczema, insect bites and contact dermatitis Critical Care Time Critical Care Time Critical Care Time: No Discharge Plan Discharge Clinical Impression: Accidental insect sting Patient Disposition: Home Condition: Stable Instructions: Insect Bite or Sting (ED) Additional Instructions: The most important part of your care is follow up with Primary care provider. Take Benadryl 25 mg every 8 hours for itching Take Zyrtec 10mg every day Take Pepcid 20mg daily for 7 days Take the steroids starting today, next dose will be in the morning Avoid hot showers, Take cool showers. Hot showers will make rashes worse Apply cool compresses every 2-3 hours for 15 minutes Go to the ER for new or worsening symptoms such as shortness of breath. Patient Language: Italian Prescriptions: New prednisone 20 mg tablet See Rx Instructions .Route .COMPLEX Qty: 9 0RF Rx Instructions: Take 40 mg daily for 3 days, 20 mg daily for 3 days No Action sertraline 50 mg tablet 50 mg PO DAILY buprenorphine-naloxone 4-1 mg film See Rx Instructions .ROUTE .COMPLEX Rx Instructions: 1 FILM DAILY Follow-up/Referrals: PHYSICIAN,RESOURCE CONSERVATION MANAGER [Primary Care Provider] - Time of Disposition: 14:33
== END 2024-10-26 14:39 | disposition home or self-care (01) ==
PROVIDERS: Emergency Provider Nurse Practitioner
DX: T63.461A Toxic effect of venom of wasps, accidental (unintentional), initial encounter (principal); F17.210 Nicotine dependence, cigarettes, uncomplicated
CPT/HCPCS: 99213; G0463